=== PATIENT | female | born 1975 ===

== ENCOUNTER 2016-05-08 16:33 | Emergency (ER) | payer MEDICAID ==
[2016-05-08] MEDS ORDERED: IBUPROFEN 600 MG TAB PO ONE (17:09)
--- NOTE | 2016-05-08 17:13 | EDPHY ---
H & P Smoking Status: Current every day smoker Time Seen by Provider: 05/08/16 16:41 HPI/ROS: CHIEF COMPLAINT: Left ear pain, right elbow pain HISTORY OF PRESENT ILLNESS: 40-year-old female presents emergency department complaining of left ear pain x2 days. Patient reports she gets frequent ear infections and this feels the same. She denies any drainage from this ear, no fevers or chills. Recent URI symptoms cough, nasal congestion. She denies chest pain or shortness of no nausea, vomiting, diarrhea or abdominal pain. Patient is also complaining of right posterior elbow pain that started while doing pushups. She has pain during pushups. She denies numbness or tingling in this arm, no previous elbow pain, no trauma. REVIEW OF SYSTEMS: A comprehensive 10 point review of systems is otherwise negative aside from elements mentioned in the history of present illness. (Caren De Guzman) Physical Exam: General: Alert, nontoxic. ENT: Right TM normal, left TM with erythema and bulging, external auditory canal, external ear and surrounding soft tissue including over the mastoid unremarkable. Nasopharynx is not injected, there is no rhinorrhea. Oropharynx without erythema or edema. There is no exudate. No tonsillar hypertrophy. No asymmetry. The uvula is midline. No elevation of tongue. There is no hoarseness. No drooling, patient has good control of their oral secretions. No trismus. No stridor. Cardiac: Regular rate and rhythm. Respiratory: Lungs clear to auscultation bilaterally. Neurological: no meningismus. Musculoskeletal: Right elbow with full active flexion, extension, pronation and supination, no tenderness over medial or lateral epicondyles. Mild tenderness to palpation just proximal to olecranon, no swelling or ecchymosis. 2 + radial pulses, sensation intact to light touch Skin: No rashes. (Caren De Guzman) Constitutional: Initial Vital Signs Temperature (C) 36.6 C 05/08/16 16:35 Heart Rate 87 05/08/16 16:35 Respiratory Rate 16 05/08/16 16:35 Blood Pressure 115/72 05/08/16 16:35 O2 Sat (%) 95 05/08/16 16:35 O2 Delivery Mode Room Air Allergies/Adverse Reactions: morphine Allergy (Verified 05/08/16 16:37) Home Medications: Medication Instructions Recorded Amoxicillin 500 mg PO BID 10 Days 05/08/16 GABAPENTIN 05/08/16 MDM/Departure - MDM Medications Given: Discontinued Medications Amoxicillin (Amoxicillin) 500 mg PO EDNOW ONE PRN Reason: Protocol Stop: 05/08/16 17:10 Last Admin: 05/08/16 17:30 Dose: 500 mg Ibuprofen (Motrin) 600 mg PO EDNOW ONE Stop: 05/08/16 17:10 Last Admin: 05/08/16 17:30 Dose: 600 mg ED Course/Re-evaluation: I did not see this patient while she was in the emergency department. However her care was discussed with the nurse practitioner while the patient was in the department. I agree with treatment plan and management (Pedro Ji) - Depart Disposition: Home, Routine, Self-Care Clinical Impression: Right elbow tendinitis Left otitis media Qualifiers: Otitis media type: suppurative Chronicity: acute Recurrence: not specified as recurrent Spontaneous tympanic membrane rupture: without spontaneous rupture Qualified Code(s): H66.002 - Acute suppurative otitis media without spontaneous rupture of ear drum, left ear Condition: Good Instructions: Otitis Media (ED), Tendinitis (ED) Additional Instructions: Take your antibiotics as prescribed, take 600 mg of ibuprofen every 8 hours with food for 5 days for both your ear and your elbow. Rest your right elbow, ice, elevate. [facility] for symptoms that are not improving. Return to the emergency department for worsening symptoms, new symptoms or concerns. Prescriptions: Amoxicillin 500 mg PO BID 10 Days Referrals: NONE *PRIMARY CARE P,. [Primary Care Provider] - As per Instructions
[2016-05-08 17:47] VITALS: BP 127/81; PULSE 76; RESP 18; TEMP 99; O2SAT 96
== END 2016-05-08 17:41 | disposition home or self-care (01) ==
DX: H66.002 Acute suppurative otitis media without spontaneous rupture of ear drum, left ear (principal); M77.8 Other enthesopathies, not elsewhere classified